=== PATIENT | female | born 1995 | race Caucasian/White ===

== ENCOUNTER 2017-11-07 23:18 | Emergency (ER) | payer BC, OTHER ==
[~2017-11-07] VITALS: Ht 175.3 cm; Wt 81.7 kg
[~2017-11-07 23:18] MED LIST: BIFERA RX TABL1 EACH PO; PRENATAL PO
[2017-11-07 23:43] LABS: ABSOLUTE EOSINOPHILS 0.1 thou/uL (0.0-0.7); ABSOLUTE MONOCYTES 0.5 thou/uL (0.0-1.2); ABSOLUTE NEUTROPHILS 4.9 thou/uL (1.6-8.1); BASOPHILS 0.4 %; EOSINOPHILS 1.1 %; HEMATOCRIT 32.5 % (37.0-47.0); HEMOGLOBIN 11.5 gm/dL (12.0-15.0); LYMPHOCYTES 26.9 %; MCH 31.6 pg (26.0-34.0); MCHC 35.4 g/dL (28.0-37.0); MCV 89.3 fL (80.0-100.0); MONOCYTES 6.4 %; MPV 8.8 fl. (7.2-11.1); NUCLEATED RBCS 0 /100WBC; PLATELET COUNT* 173 thou/uL (150-400); POLYS 65.2 %; RBC 3.64 mil/uL (4.20-5.00); RDW-CV 12.5 % (10.5-14.5); WBC 7.5 thou/uL (4.0-11.0)
[2017-11-07 23:49] LABS: CALCIUM 8.5 mg/dL (8.5-10.1); CREATININE 0.4 mg/dL (0.6-1.3); POTASSIUM 3.4 mmol/L (3.5-5.1)
[2017-11-07 23:54] LABS: ALBUMIN 2.9 g/dL (3.4-5.0); TOTAL BILIRUBIN 0.2 mg/dL (<0.1-1.0); TOTAL PROTEIN 6.7 g/dL (6.4-8.2)
[2017-11-08 00:11] VITALS: BP 107/63
== END 2017-11-08 00:12 | disposition home or self-care (01) ==
LOC: M.ERS 23:18
PROVIDERS: Nurse Practitioner Family
DX: O26.892 Other specified pregnancy related conditions, second trimester (principal); F17.200 Nicotine dependence, unspecified, uncomplicated; R10.9 Unspecified abdominal pain; Z3A.25 25 weeks gestation of pregnancy

== ENCOUNTER 2017-12-18 23:04 | Emergency (ER) | payer BC, OTHER ==
[~2017-12-18] VITALS: Ht 175.3 cm; Wt 81.7 kg
[2017-12-18 23:29] LABS: URINE BILIRUBIN NEGATIVE (Negative); URINE BLOOD 3+ (Negative); URINE CLARITY SL CLOUDY; URINE COLOR YELLOW; URINE GLUCOSE-RANDOM NEGATIVE (Negative); URINE KETONES NEGATIVE (Negative); URINE LEUKOCYTES-REFLEX 1+ (Negative); URINE NITRITE-REFLEX NEGATIVE (Negative); URINE PROTEIN 2+ (Negative); URINE SPECIFIC GRAVITY 1.015 (1.005-1.030)
[2017-12-19 00:32] LABS: CASTS None Seen /LPF (None Seen); SQUAMOUS >10 Many /LPF (0-3); URINE RBC >20 Many /HPF (0-2)
[2017-12-19 00:33] LABS: AMORPHOUS PHOSPHATES Moderate /LPF (None Seen)
[2017-12-19 02:00] VITALS: BP 88/44
== END 2017-12-19 02:02 | disposition left against medical advice (07) ==
LOC: M.ERS 23:04
PROVIDERS: Emergency Medicine
DX: O23.43 Unspecified infection of urinary tract in pregnancy, third trimester (principal); Z3A.00 Weeks of gestation of pregnancy not specified